=== PATIENT | female | born 1960 | race Caucasian/White ===

== ENCOUNTER 2016-08-12 15:36 | Emergency (ER) | payer BC ==
--- NOTE | 2016-08-12 17:07 | EDM.PDOC ---
ED HPI Trauma - General Chief Complaint: Upper Extremity Injury/Pain Stated Complaint: HAND PAIN [id number] Time Seen by Provider: 08/12/16 16:20 Source: Reports: Patient, RN, RN notes reviewed History Limitations: Reports: No limitations - History of Present Illness INITIAL COMMENTS - FREE TEXT/NARRATIVE: Patient with history of M.S. complaining of left hand pain sustained from a ground level fall. Denies any other injury. Symptom Onset Date: 08/12/16 Occurred Where: home Method of Injury: fall Severity: mild Pain/Injury Location: Reports: upper extremity, left Associated Symptoms: Reports: no other symptoms Allergies/ADRs: Allergies aspirin Allergy (Unknown, Verified 08/12/16 16:16) Other BLOODY NOSE Penicillins Allergy (Unknown, Verified 08/12/16 16:16) Other MOTHER TOLD HER THAT HER SKIN TURNED TO "STONE" Sulfa (Sulfonamide Antibiotics) Allergy (Unknown, Verified 08/12/16 16:16) Cannot Remember Home Medications: Ambulatory Orders Dimethyl Fumarate [Tecfidera] 240 mg PO BID 07/05/15 [Confirmed 08/12/16] Past Medical History HEENT History: Reports: Impaired vision, Other (see below) Other HEENT History: REFRACTION ERROR; 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; WEARS CORRECTIVE LENSES Cardiovascular History: Reports: High cholesterol Respiratory History: Reports: None Gastrointestinal History: Reports: None Genitourinary History: Reports: None [employer] History: Reports: Other (see below) Other OB/BYN History: PERIMENOPAUSAL Musculoskeletal History: Reports: Other (see below) Other Musculoskeletal History: MULTIPLE SCLEROSIS, CURRENTLY ASYMPTOMATIC Neurological History: Reports: None Psychiatric History: Reports: None Endocrine/Metabolic History: Reports: Obesity/BMI 30+ Hematologic History: Reports: None Oncologic (Cancer) History: Reports: None Dermatologic History: Reports: None - Infectious Disease History Infectious Disease History: Reports: Chicken pox, Measles, Mumps - Past Surgical History Male Surgical History: Social & Family History - Family History Family Medical History: Noncontributory - Tobacco Use Smoking Status *Q: Never Smoker Used Tobacco, but Quit: No Second Hand Smoke Exposure: No - Recreational Drug Use Recreational Drug Use: No Drug Use in Last 12 Months: No Review of Systems - Review of Systems Review Of Systems: ROS reveals no pertinent complaints other than HPI. Trauma Exam - Physical Exam Exam: See Below Exam Limited By: No limitations General Appearance: Reports: obese Respiratory Exam: Reports: no respiratory distress Cardiovascular: Reports: normal peripheral pulses Extremities: Reports: other (dorsal left hand tenderness with mild swelling and bruising. No deformity. Skin intact. ) Course - Vital Signs Last Recorded V/S: Last Vital Signs Temp 36.3 C 08/12/16 16:12 Pulse 81 08/12/16 16:12 Resp 12 08/12/16 16:12 BP 129/80 08/12/16 16:12 Pulse Ox 100 08/12/16 16:12 - Orders/Labs/Meds Orders: Active Orders 24 hr Category Date Time Status Hand Comp Min 3V Lt [CR] Urgent Exams 08/12/16 16:20 Taken - Radiology Interpretation Free Text/Narrative:: X-ray left hand: Per rad report negative of the Left hand. Departure - Departure Time of Disposition: 18:14 Disposition: Home, Self-Care 01 Condition: good Clinical Impression: Sprain of left hand Qualifiers: Encounter type: initial encounter Qualified Code(s): S63.92XA - Sprain of unspecified part of left wrist and hand, initial encounter Contusion of left hand Qualifiers: Encounter type: initial encounter Qualified Code(s): S60.222A - Contusion of left hand, initial encounter Accidental fall Qualifiers: Encounter type: initial encounter Qualified Code(s): W19.XXXA - Unspecified fall, initial encounter Instructions: Hand Contusion, Finger Sprain, [id number] Forms: ED Department Discharge Additional Instructions: Rest, ice and elevate right hand. Wear a splint as needed for comfort. Over the counter as needed for pain. Follow up in clinic if not completely improved in 7-10 days. - My Orders Last 24 Hours: My Active Orders 08/12/16 16:20 Hand Comp Min 3V Lt [CR] Urgent - Assessment/Plan Last 24 Hours: My Active Orders 08/12/16 16:20 Hand Comp Min 3V Lt [CR] Urgent
[2016-08-12 18:19] VITALS: BP 123/86
== END 2016-08-12 18:25 | disposition home or self-care (01) ==
LOC: DL.ED 15:36
DX: S63.92XA Sprain of unspecified part of left wrist and hand, initial encounter (principal); E78.00 Pure hypercholesterolemia, unspecified; E66.9 Obesity, unspecified; Z88.0 Allergy status to penicillin; Z88.2 Allergy status to sulfonamides; Z88.6 Allergy status to analgesic agent; W18.30XA Fall on same level, unspecified, initial encounter; Y92.009 Unspecified place in unspecified non-institutional (private) residence as the place of occurrence of the external cause
CPT/HCPCS: 73130; 99283; L3923

== ENCOUNTER 2022-07-03 09:30 | Observation (INO) | payer BC ==
[2022-07-03] MEDS: Ketorolac 30 MG/ML SDV IM ONE (10:05)
[2022-07-03] MEDS: Ondansetron 4 MG/2 ML SDV IVPUSH ONE (11:07)
[2022-07-03] MEDS: fentaNYL 100 MCG/2 ML SDV IVPUSH ONE (11:07)
[2022-07-03] MEDS: Sodium Chloride 0.9% 10 ML Syringe FLUSH PRN (11:07)
[2022-07-03] MEDS ORDERED: Acetaminophen 325 MG Tab PO PRN (17:06)
[2022-07-03] MEDS ORDERED: Ondansetron 4 MG/2 ML SDV IVPUSH PRN (17:06)
[2022-07-03] MEDS ORDERED: Sodium Chloride 0.9% 10 ML Syringe FLUSH PRN (17:06)
[2022-07-03] MEDS ORDERED: Polyethylene Glycol 3350 Powder 17 GM Packet PO PRN (17:06)
[2022-07-03] MEDS ORDERED: Magnesium Hydroxide 400 MG/5 ML Susp 30 ML Cup PO PRN (17:06)
[2022-07-03] MEDS ORDERED: Albuterol/Ipratropium 3.0-0.5 MG/3 ML Neb Soln NEB PRN (17:06)
[2022-07-03] MEDS ORDERED: Zolpidem 5 MG Tab PO PRN (17:06)
[2022-07-03] MEDS ORDERED: HYDROmorphone 0.5 MG/0.5 ML Syringe IVPUSH PRN (17:06)
[2022-07-03] MEDS: Acetaminophen/oxyCODONE 325-5 MG Tab PO PRN (17:56)
[2022-07-03] MEDS ORDERED: Nystatin Topical Powder 30 GM Bottle TOP PRN (21:00)
[2022-07-03] MEDS: Sodium Chloride 0.9% 10 ML Syringe FLUSH SCH (21:19)
[2022-07-03] MEDS: DIROXIMEL FUMARATE 231 MG PO SCH (21:19)
[2022-07-03] MEDS: Heparin Sodium 5,000 Units/ML Vial SUBCUT ONE (23:38)
[2022-07-03] MEDS: diphenhydrAMINE 50 MG/ML SDV IVPUSH ONE (23:40)
[2022-07-03] MEDS: cefTRIAXone 2 GM Vial IVPUSH ONE (23:42)
[2022-07-04 04:35] VITALS: BP 144/88; PULSE 91
[2022-07-04] MEDS: Ketorolac 30 MG/ML SDV IVPUSH PRN (06:05)
[2022-07-04 07:08] LABS: ANION GAP 12.6 mEq/L (7-13)
== END 2022-07-04 07:10 | disposition other institution (70) ==
LOC: DL.ED 09:30 → UNDOADMOB 15:34 → DL.MS 15:34 → DL.ED 15:52
PROVIDERS: ADMIT Internal Medicine; ATTEND Internal Medicine
DX: S82.61XA Displaced fracture of lateral malleolus of right fibula, initial encounter for closed fracture (principal); B37.89 Other sites of candidiasis; E78.5 Hyperlipidemia, unspecified; E66.9 Obesity, unspecified; Z68.43 Body mass index [BMI] 50.0-59.9, adult; W18.30XA Fall on same level, unspecified, initial encounter; Z79.899 Other long term (current) drug therapy
CPT/HCPCS: 29515; 36415; 73600-RT; 80053; 81001; 83735; 85025; 87086; 87088; 87186; 96372; 96374; 96375; 99222; 99238; 99284; 99285-25; A9270-GY; G0378; J0696; J1200; J1644; J1885; J2405; J3010; J3490

== ENCOUNTER 2023-08-06 09:45 | Inpatient (IN) | payer BC ==
[2023-08-06] MEDS ORDERED: Albuterol/Ipratropium 3.0-0.5 MG/3 ML Neb Soln NEB PRN (11:28)
[2023-08-06] MEDS ORDERED: HYDROmorphone 0.5 MG/0.5 ML Syringe IVPUSH PRN (11:28)
[2023-08-06] MEDS ORDERED: Temazepam 15 MG Cap PO PRN (11:28)
[2023-08-06] MEDS ORDERED: Ondansetron 4 MG/2 ML SDV IVPUSH PRN (11:28)
[2023-08-06] MEDS ORDERED: Acetaminophen/oxyCODONE 325-5 MG Tab PO PRN (11:28)
[2023-08-06] MEDS ORDERED: Sodium Chloride 0.9% 10 ML Syringe FLUSH PRN (11:28)
[2023-08-06 12:14] LABS: HEMATOCRIT 40.7 % (37.0-47.0); HEMOGLOBIN 13.7 g/dL (12.0-16.0); MEAN CORPUSCULAR HEMOGLOBIN 28.6 pg (27.0-34.0); MEAN CORPUSCULAR HGB CONC 33.7 g/dL (33.0-35.0); PLATELET COUNT,PLT 257 10^3/uL (150-450); RED BLOOD CELL COUNT 4.79 10^6/uL (4.2-5.4); WHITE BLOOD CELL COUNT,WBC 5.6 10^3/uL (5.0-10.0)
[2023-08-06 12:19] LABS: BASOPHILS PERCENT AUTO 0.4 % (0.0-1.0); EOSINOPHILS PERCENT AUTO 0.2 % (1.0-3.0); LYMPHOCYTES PERCENT AUTO 5.7 % (20.5-50.1); MONOCYTES PERCENT AUTO 8.9 % (2-8); NEUTROPHILS PERCENT AUTO 84.8 % (42.2-75.2)
[2023-08-06 12:28] LABS: A/G RATIO 1.2; ALANINE AMINOTRANSFERASE,ALT 34 U/L (14-59); ALBUMIN 3.8 g/dL (3.4-5.0); ALKALINE PHOSPHATASE 139 U/L (46-116); ANION GAP 12.1 mEq/L (7-13); ASPARTATE AMNIOTRANSFERASE,AST 17 U/L (15-37); BILIRUBIN TOTAL 0.8 mg/dL (0.2-1.0); BLOOD UREA NITROGEN,BUN 14 mg/dL (7-18); BUN/CREATININE RATIO 18.4 (No establ ref range); C-REACTIVE PROTEIN 0.53 ng/dL (<=0.50); CALCIUM 9.1 mg/dL (8.5-10.1); CARBON DIOXIDE,CO2 31 mmol/L (21-32); CHLORIDE,CL 100 mmol/L (98-107); CREATININE 0.76 mg/dL (0.55-1.02); ESTIMATED GFR 88 mL/min (>=60); GLUCOSE RANDOM 109 mg/dL (70-99); POTASSIUM,K 4.1 mmol/L (3.5-5.1); PROTEIN TOTAL,TP 7.1 g/dL (6.4-8.2); SODIUM,NA 139 mmol/L (136-145)
[2023-08-06] MEDS ORDERED: Lidocaine 2% Viscous Solution 15 ML UD PO PRN (12:42)
[2023-08-06 13:06] LABS: LYMPHOCYTES PERCENT MAN 9 % (20-50); MONOCYTES PERCENT MAN 2 % (2-8); SEG NEUTROPHILS PERCENT MAN 89 % (42-75)
[2023-08-06] MEDS: valACYclovir 1,000 MG Tab PO ONE (14:17)
[2023-08-06] MEDS: Dexamethasone 4 MG/ML SDV IVPUSH ONE (14:18)
[2023-08-06] MEDS: metroNIDAZOLE/Normal Saline 100 ML IV SCH (14:18)
[2023-08-06] MEDS: Famotidine 20 MG/2 ML SDV IVPUSH ONE (14:18)
[2023-08-06] MEDS: diphenhydrAMINE 50 MG/ML SDV IVPUSH ONE (14:19)
[2023-08-06] MEDS: Levofloxacin/Dextrose 5%-Water 150 ML IV SCH (15:35)
[2023-08-06] MEDS: Ketorolac 30 MG/ML SDV IVPUSH ONE (15:45)
[2023-08-06] MEDS: Acetaminophen 325 MG Tab PO PRN (15:46)
[2023-08-06] MEDS ORDERED: Benzocaine 20% Oral Spray 59.2 ML Canister MUCMEM PRN (16:56)
[2023-08-06] MEDS: Dextrose 5% in Water 1,000 ML IV SCH (17:40)
[2023-08-06] MEDS ORDERED: Pantoprazole 40 MG Vial IVPUSH SCH (21:00)
[2023-08-06] MEDS ORDERED: methylPREDNISolone Sodium Succinate 500 MG/4 ML SDV IVPUSH SCH (21:00)
[2023-08-06] MEDS ORDERED: Dexamethasone 4 MG/ML SDV IVPUSH SCH (21:00)
[2023-08-06] MEDS ORDERED: Naproxen 250 MG Tab PO SCH (21:00)
[2023-08-06] MEDS ORDERED: Al and Mag Hydroxide/Diphenhydramine/Lidocaine/Simethicone 237 ML Bottle PO PRN (21:04)
[2023-08-06] MEDS: valACYclovir 1,000 MG Tab PO SCH (21:23)
[2023-08-06] MEDS: Mycophenolate Mofetil 250 MG Cap PO SCH (21:23)
[2023-08-06] MEDS: predniSONE 20 MG Tab PO SCH (21:25)
[2023-08-06] MEDS: Famotidine 20 MG/2 ML SDV IVPUSH SCH (21:25)
[2023-08-06] MEDS: diphenhydrAMINE 50 MG/ML SDV IVPUSH SCH (21:29)
[2023-08-06] MEDS: Patient's Own Medication 1 Each PO SCH (21:31)
[2023-08-06] MEDS: Sodium Chloride 0.9% 10 ML Syringe FLUSH SCH (21:46)
[2023-08-06] MEDS ORDERED: 50% Dextrose in Water 50 ML Syringe IVPUSH PRN (21:47)
[2023-08-06] MEDS ORDERED: Glucagon,Human Recombinant 1 MG Vial IM PRN (21:47)
[2023-08-06] MEDS: methylPREDNISolone Sodium Succinate 500 MG/4 ML SDV IVPUSH SCH (22:05)
[2023-08-06] MEDS: WATER FOR INJ IV SCH (23:42)
[2023-08-06] MEDS: VANCOMYCIN IV SCH (23:42)
[2023-08-06] MEDS: Mycophenolate Mofetil 250 MG Cap PO ONE (23:43)
[2023-08-07 06:38] LABS: HEMATOCRIT 39.2 % (37.0-47.0); MEAN CORPUSCULAR HGB CONC 33.2 g/dL (33.0-35.0); MEAN CORPUSCULAR VOLUME 84.5 fL (80-100); PLATELET COUNT,PLT 231 10^3/uL (150-450); RED BLOOD CELL COUNT 4.64 10^6/uL (4.2-5.4)
[2023-08-07 06:47] LABS: ALBUMIN 3.4 g/dL (3.4-5.0); ANION GAP 13.9 mEq/L (7-13); BILIRUBIN TOTAL 0.6 mg/dL (0.2-1.0); BUN/CREATININE RATIO 16.9 (No establ ref range); C-REACTIVE PROTEIN 1.08 ng/dL (<=0.50); CALCIUM 8.7 mg/dL (8.5-10.1); CREATININE 0.77 mg/dL (0.55-1.02); EST CRCL DRUG DOSING (CG) 70.01 mL/min; MAGNESIUM 1.7 mg/dL (1.8-2.4); POTASSIUM,K 3.9 mmol/L (3.5-5.1); PROTEIN TOTAL,TP 6.8 g/dL (6.4-8.2)
[2023-08-07 07:13] LABS: BASOPHILS PERCENT AUTO 0.2 % (0.0-1.0); LYMPHOCYTES PERCENT AUTO 9.8 % (20.5-50.1)
[2023-08-07 07:29] LABS: LYMPHOCYTES PERCENT MAN 7 % (20-50); MONOCYTES PERCENT MAN 2 % (2-8); SEG NEUTROPHILS PERCENT MAN 91 % (42-75)
[2023-08-07 07:41] LABS: SEDIMENTATION RATE MANUAL 1 mm/hr (0-20)
[2023-08-07] MEDS: Magnesium Sulfate/Water 2 GM in Premix Bag 1 BAG IV ONE (08:58)
[2023-08-07] MEDS ORDERED: cefTRIAXone 2 GM Vial IVPUSH SCH (09:00)
[2023-08-07] MEDS ORDERED: Oxybutynin 5 MG Tab PO SCH (09:00)
[2023-08-07] MEDS ORDERED: DIROXIMEL FUMARATE 231 MG PO SCH ×2 (09:00→21:00)
[2023-08-07] MEDS: Insulin Lispro 100 Units/ML 3 ML Vial SUBCUT SCH (09:05)
[2023-08-07] MEDS: Oxybutynin 5 MG Tab PO SCH ×2 (09:07→21:45)
[2023-08-07] MEDS: VANCOmycin 1.75 GM/350 ML 1.75 GM in Premix Bag 1 BAG IV SCH (09:16)
[2023-08-07] MEDS ORDERED: Nystatin Crm 15 GM Tube TOP PRN (17:09)
[2023-08-07] MEDS: SODIUM CHLORIDE 0.9% IV SCH (18:18)
[2023-08-07] MEDS: ACYCLOVIR IV SCH (18:18)
[2023-08-07] MEDS: Mycophenolate Mofetil 250 MG Cap PO ONE (22:01)
[2023-08-07] MEDS: Famotidine 20 MG Tab PO SCH (22:01)
[2023-08-08 06:43] LABS: HEMATOCRIT 38.1 % (37.0-47.0); HEMOGLOBIN 12.7 g/dL (12.0-16.0); MEAN CORPUSCULAR HGB CONC 33.3 g/dL (33.0-35.0); MEAN CORPUSCULAR VOLUME 83.9 fL (80-100); PLATELET COUNT,PLT 255 10^3/uL (150-450); RED BLOOD CELL COUNT 4.54 10^6/uL (4.2-5.4); WHITE BLOOD CELL COUNT,WBC 6.1 10^3/uL (5.0-10.0)
[2023-08-08 06:55] LABS: ALANINE AMINOTRANSFERASE,ALT 24 U/L (14-59); ALBUMIN 3.2 g/dL (3.4-5.0); ALKALINE PHOSPHATASE 113 U/L (46-116); ASPARTATE AMNIOTRANSFERASE,AST 9 U/L (15-37); BILIRUBIN TOTAL 0.4 mg/dL (0.2-1.0); BLOOD UREA NITROGEN,BUN 12 mg/dL (7-18); BUN/CREATININE RATIO 17.1 (No establ ref range); CALCIUM 8.6 mg/dL (8.5-10.1); EST CRCL DRUG DOSING (CG) 77.01 mL/min; GLUCOSE RANDOM 151 mg/dL (70-99); MAGNESIUM 2.2 mg/dL (1.8-2.4); POTASSIUM,K 3.7 mmol/L (3.5-5.1); PROTEIN TOTAL,TP 6.5 g/dL (6.4-8.2)
[2023-08-08 06:56] LABS: MONOCYTES PERCENT AUTO 7.9 % (2-8); NEUTROPHILS PERCENT AUTO 83.1 % (42.2-75.2)
[2023-08-08 07:00] LABS: ANION GAP 10.7 mEq/L (7-13); CARBON DIOXIDE,CO2 28 mmol/L (21-32); CHLORIDE,CL 103 mmol/L (98-107); SODIUM,NA 138 mmol/L (136-145)
[2023-08-08 07:25] LABS: A/G RATIO 0.97; C-REACTIVE PROTEIN < 0.50 ng/dL (<=0.50); ESTIMATED GFR 97 mL/min (>=60)
[2023-08-08 07:29] LABS: SEDIMENTATION RATE MANUAL 5 mm/hr (0-20)
[2023-08-08 07:30] LABS: LYMPHOCYTES PERCENT MAN 6 % (20-50); MONOCYTES PERCENT MAN 10 % (2-8); SEG NEUTROPHILS PERCENT MAN 84 % (42-75)
[2023-08-08] MEDS ORDERED: Oxybutynin 5 MG Tab PO SCH (09:00)
[2023-08-08] MEDS: Patient's Own Medication 1 Each EARLF ONE (17:31)
[2023-08-08] MEDS: Mycophenolate Mofetil 250 MG Cap PO SCH (21:17)
[2023-08-08] MEDS: diphenhydrAMINE 25 MG Tab PO SCH (21:17)
[2023-08-09 06:29] LABS: HEMATOCRIT 37.7 % (37.0-47.0); HEMOGLOBIN 12.6 g/dL (12.0-16.0); MEAN CORPUSCULAR HEMOGLOBIN 28.2 pg (27.0-34.0); MEAN CORPUSCULAR HGB CONC 33.4 g/dL (33.0-35.0); MEAN CORPUSCULAR VOLUME 84.3 fL (80-100); PLATELET COUNT,PLT 258 10^3/uL (150-450); RED BLOOD CELL COUNT 4.47 10^6/uL (4.2-5.4); WHITE BLOOD CELL COUNT,WBC 5.8 10^3/uL (5.0-10.0)
[2023-08-09 06:35] LABS: LYMPHOCYTES PERCENT AUTO 6.3 % (20.5-50.1); NEUTROPHILS PERCENT AUTO 88.7 % (42.2-75.2)
[2023-08-09 06:45] LABS: ALANINE AMINOTRANSFERASE,ALT 25 U/L (14-59); ALBUMIN 3.1 g/dL (3.4-5.0); ALKALINE PHOSPHATASE 101 U/L (46-116); ANION GAP 11.6 mEq/L (7-13); ASPARTATE AMNIOTRANSFERASE,AST 13 U/L (15-37); BILIRUBIN TOTAL 0.4 mg/dL (0.2-1.0); BLOOD UREA NITROGEN,BUN 19 mg/dL (7-18); BUN/CREATININE RATIO 33.3 (No establ ref range); CALCIUM 8.5 mg/dL (8.5-10.1); CARBON DIOXIDE,CO2 28 mmol/L (21-32); CHLORIDE,CL 103 mmol/L (98-107); CREATININE 0.57 mg/dL (0.55-1.02); EST CRCL DRUG DOSING (CG) 94.57 mL/min; GLUCOSE RANDOM 140 mg/dL (70-99); MAGNESIUM 2.3 mg/dL (1.8-2.4); POTASSIUM,K 3.6 mmol/L (3.5-5.1); PROTEIN TOTAL,TP 6.1 g/dL (6.4-8.2); SODIUM,NA 139 mmol/L (136-145)
[2023-08-09 06:49] LABS: A/G RATIO 1.03; ESTIMATED GFR 102 mL/min (>=60)
[2023-08-09 06:50] LABS: C-REACTIVE PROTEIN < 0.50 ng/dL (<=0.50)
[2023-08-09 06:59] LABS: BAND PERCENT MAN 1 %; LYMPHOCYTES PERCENT MAN 3 % (20-50); MONOCYTES PERCENT MAN 6 % (2-8); SEG NEUTROPHILS PERCENT MAN 90 % (42-75)
[2023-08-09 07:15] LABS: SEDIMENTATION RATE MANUAL 1 mm/hr (0-20)
[2023-08-09] MEDS: OFLOXACIN 0.3% EARLF SCH (08:21)
[2023-08-09] MEDS: Carboxymethylcellulose Sodium 1% Ophth Gel 0.4 ML UD EYELF PRN (10:52)
[2023-08-09 12:46] LABS: HBS AB <3.10 IU/L; HEP B SURFACE AG Negative (Negative)
[2023-08-09 13:46] LABS: HBC IGM Negative (Negative); HEP B CORE IGG/IGM Negative (Negative)
[2023-08-09] MEDS: Non-Formulary Medication 1 Each PO PRN (14:11)
[2023-08-10 06:38] LABS: HEMATOCRIT 38.6 % (37.0-47.0); LYMPHOCYTES PERCENT AUTO 5.8 % (20.5-50.1); MEAN CORPUSCULAR HEMOGLOBIN 28.4 pg (27.0-34.0); MEAN CORPUSCULAR HGB CONC 33.7 g/dL (33.0-35.0); MEAN CORPUSCULAR VOLUME 84.3 fL (80-100); MONOCYTES PERCENT AUTO 3.8 % (2-8); NEUTROPHILS PERCENT AUTO 90.4 % (42.2-75.2); PLATELET COUNT,PLT 250 10^3/uL (150-450); RED BLOOD CELL COUNT 4.58 10^6/uL (4.2-5.4)
[2023-08-10 07:13] LABS: ALANINE AMINOTRANSFERASE,ALT 30 U/L (14-59); ALBUMIN 3.1 g/dL (3.4-5.0); ALKALINE PHOSPHATASE 99 U/L (46-116); ANION GAP 11.7 mEq/L (7-13); ASPARTATE AMNIOTRANSFERASE,AST 14 U/L (15-37); BILIRUBIN TOTAL 0.5 mg/dL (0.2-1.0); BLOOD UREA NITROGEN,BUN 17 mg/dL (7-18); CALCIUM 8.4 mg/dL (8.5-10.1); CARBON DIOXIDE,CO2 27 mmol/L (21-32); CHLORIDE,CL 103 mmol/L (98-107); CREATININE 0.63 mg/dL (0.55-1.02); EST CRCL DRUG DOSING (CG) 85.56 mL/min; GLUCOSE RANDOM 145 mg/dL (70-99); MAGNESIUM 2.2 mg/dL (1.8-2.4); POTASSIUM,K 3.7 mmol/L (3.5-5.1); PROTEIN TOTAL,TP 6.2 g/dL (6.4-8.2); SODIUM,NA 138 mmol/L (136-145)
[2023-08-10 07:16] LABS: C-REACTIVE PROTEIN < 0.50 ng/dL (<=0.50); ESTIMATED GFR 100 mL/min (>=60)
[2023-08-10 07:35] LABS: SEDIMENTATION RATE MANUAL 1 mm/hr (0-20)
[2023-08-10] MEDS: Patient's Own Medication 1 Each EARLF SCH (08:30)
[2023-08-10 11:48] VITALS: BP 130/78; PULSE 73
== END 2023-08-10 13:47 | disposition home or self-care (01) | DRG 385 ==
LOC: UNDOADMIN 09:45 → DL.MS 09:45
PROVIDERS: ADMIT Nurse Practitioner Family; ATTEND Internal Medicine
DX: L50.3 Dermatographic urticaria (principal); L03.211 Cellulitis of face; L10.0 Pemphigus vulgaris; B02.8 Zoster with other complications; H54.7 Unspecified visual loss; E78.5 Hyperlipidemia, unspecified; G35 Multiple sclerosis; E66.01 Morbid (severe) obesity due to excess calories; E78.00 Pure hypercholesterolemia, unspecified; T36.1X5A Adverse effect of cephalosporins and other beta-lactam antibiotics, initial encounter; R79.89 Other specified abnormal findings of blood chemistry; E11.65 Type 2 diabetes mellitus with hyperglycemia; E83.42 Hypomagnesemia; Z87.81 Personal history of (healed) traumatic fracture; Z68.41 Body mass index [BMI] 40.0-44.9, adult; Z88.0 Allergy status to penicillin; Z88.2 Allergy status to sulfonamides; Z88.8 Allergy status to other drugs, medicaments and biological substances; Z79.899 Other long term (current) drug therapy; Z86.16 Personal history of COVID-19; Z98.890 Other specified postprocedural states
CPT/HCPCS: 36415; 80053; 80202; 82947; 83735; 85025; 85651; 86140; 86704; 86705; 86706; 87070; 87081; 87340; 87430; 87529; 87798; 99223; 99232; 99233; 99238; A9270-GY; J1100; J1200; J1815-GY; J1836; J1885; J1956; J3370; J3475; J3490; J7050; J7060; J7512